=== PATIENT | female | born 1935 | race Caucasian/White ===

== ENCOUNTER 2018-07-02 19:21 | Emergency (ER) | payer MEDICARE, OTHER ==
--- NOTE | 2018-07-02 20:51 | RAD ---
RIGHT SHOULDER THREE VIEWS: 07/02/2018 HISTORY: Shoulder pain. Fall. Trauma. COMPARISON: None. FINDINGS: The bones are demineralized. There is prominent degenerative change of the right acromioclavicular i nterspace with interspace narrowing and superior osteophyte formation. There is postoperative hardwa re, consistent of lateral screw and plate fixation, involving the right humeral head and neck. There is no widening of the acromioclavicular or coracoclavicular interspace. The bones are demineralized . No displaced fracture or evidence of dislocation. There is mild, diffuse increased linear interstitial density within the imaged lung parenchyma. IMPRESSION: Degenerative and postoperative change. No displaced fracture or evidence of dislocation is seen. POS: [facility]
== END 2018-07-02 20:48 | disposition home or self-care (01) ==
LOC: SCSER 19:21
DX: S40.011A Contusion of right shoulder, initial encounter (principal); I25.10 Atherosclerotic heart disease of native coronary artery without angina pectoris; I25.2 Old myocardial infarction; I10 Essential (primary) hypertension; W18.30XA Fall on same level, unspecified, initial encounter

== ENCOUNTER 2019-02-04 10:42 | Emergency (ER) | payer MEDICARE ==
[~2019-02-04 10:42] MED LIST: Iopamidol 370 76% 100 ML VIAL ONE
[2019-02-04 11:24] LABS: #Basophils 0.1 thou/uL (0.0-0.2); #Eosinphils 0.2 thou/uL (0.0-0.7); #Lymphocytes 1.6 thou/uL (1.20-3.40); #Monocytes 1.2 thou/uL (0.11-0.59); %Basophils 1.1 % (0.0-1.0); %Eosinophils 1.8 % (0.0-10.0); %Lymphocytes 14.1 % (21.0-51.0); %Monocytes 10.4 % (0.0-10.0); %Neutrophils 72.6 % (42.0-75.0); Hemoglobin 10.7 g/dL (12.0-16.0); Mean Corpuscular HGB CONC 32.7 g/dL (32.0-36.0); Mean Corpuscular Volume 79.7 fL (78.0-98.0); Mean Platelet Volume 5.7 fL (7.4-10.4); Platelet Count 320 thou/uL (130-400); RBC Distribution Width 16.3 % (11.5-14.5); Red Blood Cell (RBC) Count 4.11 mill/uL (4.20-5.40)
[2019-02-04 11:34] LABS: INR-International Normal Ratio 1.4; PTT 35.4 SEC (22.9-36.1); Prothrombin Time 17.4 SEC (12.0-14.7)
[2019-02-04 11:41] LABS: ALT (SGPT) 19 U/L (8-55); AST (SGOT) 19 U/L (5-34); Alkaline Phosphatase 78 U/L (40-150); Anion Gap 13 mmol/L (10-20); BUN (Urea Nitrogen) 19 mg/dL (9.8-20.1); Bilirubin, Total 0.8 mg/dL (0.2-1.2); CK (CPK) 78 U/L (29-168); Calc. Creatinine Clearance 0 mL/min (70-130); Carbon Dioxide 25 mmol/L (23-31); Chloride 97 mmol/L (98-107); Estimated GFR-MDRD 56; Globulin 2.6 g/dL (2.4-3.5); Glucose 110 mg/dL (83-110); Lipase 15 U/L (8-78); Potassium 3.9 mmol/L (3.5-5.1); Protein, Total 6.6 g/dL (6.0-8.3); Sodium 131 mmol/L (136-145)
--- NOTE | 2019-02-04 12:23 | RAD ---
RIGHT FOREARM 2 VIEWS: Date: 02/04/19 HISTORY: Fall last night. Forearm pain. FINDINGS: The bones are very demineralized. There are some arthritic changes of the wrist and elbow. There are no signs of any acute fracture. IMPRESSION: No evidence of fracture. POS: [facility]
--- NOTE | 2019-02-04 12:25 | RAD ---
RIGHT HUMERUS 2 VIEWS: Date: 02/04/19 HISTORY: Injury. FINDINGS/IMPRESSION: The patient is post internal fixation of proximal humeral with plate and screws. Humeral head appears normally positioned. AC joint normally aligned with degenerative change noted. No acute fracture lena ntified. POS: [facility]
--- NOTE | 2019-02-04 12:30 | CT ---
CT head without contrast: 02/04/2019 COMPARISON: 06/27/2014 HISTORY: Fall, trauma, pain TECHNIQUE: Axial CT imaging at 4.8 mm intervals from vertex through skull base without contrast FINDINGS: The imaged paranasal sinuses/mastoid air cells are well aerated. No displaced calvarial fracture noted. There is moderate diffuse cerebral volume loss with prominence of the CSF containing spaces noted. There is stable periventricular, deep, and subcortical white matter hypodensity, evidence of signific ant small vessel disease. No intracranial hemorrhage, midline shift, or mass effect noted. IMPRESSION: Small vessel disease and cerebral volume loss with no evidence for intracranial hemorrhag e.
--- NOTE | 2019-02-04 12:37 | CT ---
Cervical spine CT without contrast: 02/04/2019 COMPARISON: None HISTORY: Fall, trauma, pain TECHNIQUE: Axial CT imaging is obtained at 2 mm intervals from skull base through lung apices with [place] and sagittal reformatted imaging FINDINGS: Multifocal scattered atherosclerotic calcification is noted throughout the neck. The visual ized lung apices demonstrate no acute findings. There is moderate degenerative change at the atlantoaxial interspace. The craniocervical junction and the atlantoaxial interspace appear within normal limits aside from moderate degenerative change at the atlantoaxial interspace. The occipital condyles, the dens, and the C1-2 articulation demonstrate no acute findings. The cervic othoracic junction is intact. There is prominent multilevel bilateral cervical spine facet hypertrophy, left greater than right. The C1 ring appears intact. No displaced fracture or evidence of dislocation. IMPRESSION: Chronic findings as detailed above. No acute fracture or evidence of dislocation noted.
[2019-02-04] MEDS ORDERED: traMADol HCl 50 MG TAB ONE (13:01)
[2019-02-04 13:22] LABS: Bilirubin Negative (Negative); Blood, Urine Moderate (Negative); Clarity Clear (Clear); Glucose, Urine (Dipstick) Negative (Negative); Leukocyte Trace (Negative); Nitrite Negative (Negative); Protein, Urine (Dipstick) Trace mg/dL (Neg-Trace); Urobilinogen 0.2 mg/dL (Less than 2)
[2019-02-04 13:23] LABS: Bacteria/HPF Rare-Few HPF (None Seen); RBC/HPF 21-50 HPF (0-3); Squamous Epithelial 0-3 HPF (0-3)
[2019-02-04] MEDS ORDERED: Bacitracin 1 PK ONE (13:33)
--- NOTE | 2019-02-04 14:12 | CT ---
CT CHEST AND ABDOMEM AND PELVIS WITH IV CONTRAST: Date: 02/04/19 INDICATINO: History of fall with traumatic injury to the chest, abdomen, and pelvis. FINDINGS: Small bilateral pleural effusions and bibasilar atelectasis. No contusion, pleural effusion, or pneumothorax evident. Heart and great vessels appear within normal limits. There is severe vascular calcification. There are findings of prior granulomatous change wit hin the thorax. There is scattered fibrotic change. No solid organ injury of the abdomen or pelvis evident. There are scattered calcified granulomas in the spleen. Adrenal glands, pancreas, and kidneys appear within normal limits. There are small right renal cysts. There is an infrarenal abdominal aortic aneurysm measuring 3 cm. There is severe vascular calcificati on involving the abdominopelvic vasculature. 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 Reproductive structures, bladder, rectum, and perirectal soft tissues reveal no definite acute injury . Unopacified large and small bowel are unremarkable appearing. There is diffuse osteopenia. There is scattered degenerative and osteoarthritic change. There is Grad e I anterolisthesis of L4 on L5. No definite acute fracture or subluxation is evident. IMPRESSION: 1. No acute traumatic injury involving the chest, abdomen, or pelvis. 2. Small bilateral pleural effusions. 3. Small infrarenal abdominal aortic aneurysm measuring 3 cm. 4. Other chronic findings as above. POS: [facility]
== END 2019-02-04 13:46 | disposition home or self-care (01) ==
LOC: SCSER 10:42
DX: S09.90XA Unspecified injury of head, initial encounter (principal); G47.00 Insomnia, unspecified; I25.10 Atherosclerotic heart disease of native coronary artery without angina pectoris; I25.2 Old myocardial infarction; I10 Essential (primary) hypertension; Z79.01 Long term (current) use of anticoagulants; Z79.899 Other long term (current) drug therapy; W18.30XA Fall on same level, unspecified, initial encounter
CPT/HCPCS: 36415; 51701; 70450; 71260; 72125; 74177; 80053; 81003; 81015; 82550; 83690; 84484; 85025; 85610; 85730; 87086; 93005; Q9967

== ENCOUNTER 2019-09-17 17:57 | Emergency (ER) | payer MEDICARE, BC ==
[2019-09-17 19:33] LABS: #Basophils 0.1 thou/uL (0.0-0.2); #Eosinphils 0.2 thou/uL (0.0-0.7); #Lymphocytes 2.6 thou/uL (1.20-3.40); #Monocytes 1.2 thou/uL (0.11-0.59); #Neutrophils 10.7 thou/uL (1.40-6.50); %Basophils 0.4 % (0.0-1.0); %Eosinophils 1.3 % (0.0-10.0); %Lymphocytes 17.7 % (21.0-51.0); %Neutrophils 72.6 % (42.0-75.0); Mean Corpuscular HGB CONC 32.9 g/dL (32.0-36.0); Mean Corpuscular Hemoglobin 27.5 pg (27.0-31.0); Mean Corpuscular Volume 83.7 fL (78.0-98.0); Mean Platelet Volume 6.9 fL (7.4-10.4); Platelet Count 362 thou/uL (130-400); RBC Distribution Width 15.5 % (11.5-14.5); Red Blood Cell (RBC) Count 4.35 mill/uL (4.20-5.40); White Blood Cell (WBC) Count 14.8 thou/uL (4.8-10.8)
--- NOTE | 2019-09-17 19:37 | RAD ---
Portable frontal chest radiograph: 09/17/2019 COMPARISON: 10/12/2005 HISTORY: Hypotension FINDINGS: There is postoperative hardware involving the proximal right humerus. Midline sternotomy wi res are noted. Interstitial prominence and pulmonary hyperinflation noted. There is atherosclerotic calcification the aortic arch. No pneumothorax, pleural fluid, focal consolidation, or alveolar edema . IMPRESSION: Chronic findings as above.
[2019-09-17 19:55] LABS: ALT (SGPT) 9 U/L (8-55); AST (SGOT) 12 U/L (5-34); Albumin 3.2 g/dL (3.4-4.8); Alkaline Phosphatase 86 U/L (40-110); Anion Gap 13 mmol/L (10-20); BUN (Urea Nitrogen) 20 mg/dL (9.8-20.1); Bilirubin, Total 0.6 mg/dL (0.2-1.2); Calc. Creatinine Clearance 0 mL/min (70-130); Calcium 8.1 mg/dL (7.8-10.44); Carbon Dioxide 21 mmol/L (23-31); Chloride 104 mmol/L (98-107); Estimated GFR-MDRD 32; Globulin 2.7 g/dL (2.4-3.5); Glucose 107 mg/dL (83-110); Protein, Total 5.9 g/dL (6.0-8.3); Sodium 134 mmol/L (136-145)
[2019-09-17 20:16] LABS: CKMB 1.8 ng/mL (0-6.6)
--- NOTE | 2019-09-22 01:17 | EKG ---
Test Reason : Blood Pressure : / mmHG Vent. Rate : 079 BPM Atrial Rate : 357 BPM P-R Int : 000 ms QRS Dur : 094 ms QT Int : 370 ms P-R-T Axes : 000 010 144 degrees QTc Int : 424 ms Atrial fibrillation Abnormal ECG Confirmed by JULITO CHÁVEZ DO ([id number]), non linear editor ALEX OLIVIA ([id number] on 09/22/2019 1:17:32 AM Referred By: Confirmed By:JULITO CHÁVEZ DO
== END 2019-09-17 22:13 ==
LOC: ERS 17:57
DX: I95.9 Hypotension, unspecified (principal); I35.0 Nonrheumatic aortic (valve) stenosis; R55 Syncope and collapse; G47.00 Insomnia, unspecified; F03.90 Unspecified dementia, unspecified severity, without behavioral disturbance, psychotic disturbance, mood disturbance, and anxiety; I25.2 Old myocardial infarction; I25.10 Atherosclerotic heart disease of native coronary artery without angina pectoris; I10 Essential (primary) hypertension; Z79.82 Long term (current) use of aspirin; Z79.01 Long term (current) use of anticoagulants; Z79.899 Other long term (current) drug therapy
CPT/HCPCS: 36415; 71045; 80053; 82553; 84484; 85025; 93005; 96360; 96361; A4353